=== PATIENT | female | born 1980 | race Caucasian/White ===

== ENCOUNTER → 2016-07-10 | Outpatient (CLI) | payer BC ==
[~2016-07-10] MED LIST: IBUPROFEN600 MG PO; IRON324 M1 PO; PERCOCET 325 MG1 TA2 PO; PRENATAL1 TA2 PO; STOOL SOFTENER100 MG PO
== END ==
LOC: COL.RAD 10:20
DX: N83.202 Unspecified ovarian cyst, left side (principal)
CPT/HCPCS: Q9967

== ENCOUNTER → 2017-07-13 | Outpatient (CLI) | payer BC | LOC: MC.RAD 07:22 | DX: N63.20 Unspecified lump in the left breast, unspecified quadrant (principal); Z80.3 Family history of malignant neoplasm of breast ==

== ENCOUNTER → 2024-01-09 | Outpatient (CLI) | payer BC | LOC: MC.RAD 11:29 | DX: Z12.31 Encounter for screening mammogram for malignant neoplasm of breast (principal); R92.0 Mammographic microcalcification found on diagnostic imaging of breast ==